=== PATIENT | female | born 1975 | race Caucasian/White ===

== ENCOUNTER 2018-08-28 19:00 | Outpatient (CLI) | payer MEDICAID ==
[~2018-08-28 19:00] MED LIST: MOTRIN600 MG PO; PERCOCET 5/3251 TA1 PO
== END 2018-08-28 23:59 | disposition home or self-care (01) ==
LOC: D.MAMMO 19:00
PROVIDERS: ATTEND Nurse Practitioner Women's Health
DX: Z12.31 Encounter for screening mammogram for malignant neoplasm of breast (principal)